=== PATIENT | male | born 1980 | race Hispanic/Latino ===

== ENCOUNTER 2020-03-02 21:33 | Inpatient (IN) | payer OTHER, SELFPAY ==
[~2020-03-02] VITALS: Ht 170.2 cm; Wt 82.1 kg
[2020-03-02 23:15] VITALS: BP 144/102
--- NOTE | 2020-03-02 23:35 | NUR ---
RADIOLOGY PATIENT TO XRAY VIA WHEELCHAIR WITH [employer] MOTOR VEHICLE EMISSIONS INSPECTOR
[2020-03-03] VITALS (46 sets, daily range): BP systolic 93–145; BP diastolic 41–89
--- NOTE | 2020-03-03 | NUR ---
LAB RESULTS RECEIVED CALL FROM LAB THAT PATIENT HAD A POSITIVE STREP RESULT. INFORMED DR. ROSS AT THAT TIME.
--- NOTE | 2020-03-03 00:17 | DIREP ---
PROCEDURE:CHEST 2 VIEWS COMPARISON:None. INDICATIONS:fever, cough FINDINGS: LUNGS/PLEURA:Vague opacity central right could represent a focus of pneumonia VASCULATURE:Normal. Unremarkable pulmonary vasculature. CARDIAC:Normal. No cardiac silhouette abnormality or cardiomegaly. MEDIASTINUM:Normal. No visible mass or adenopathy. BONES:Normal. No fracture or visible bony lesion. OTHER:Negative. CONCLUSION:Vague opacity central right lung, consider COVID-[address] could be used to confirm. No pneumothorax. No consolidation. Dictated by: Carmen Schmid MD on 03/03/2020 at 00:08 AM
[2020-03-03 00:49] LABS: BASOPHIL % 0.4 % (0.0-0.2); LYMPHOCYTES # 0.87 10^3/uL1 (1.0-4.8); MEAN CORP HGB 30.4 pg (26-34); MONOCYTES # 0.6 10^3/uL (0.3-0.8); NEUTROPHIL # 3.1 10^3/uL (1.8-7.7); NEUTROPHILS % 67.5 % (41.0-85.0); PLATELET COUNT 165 10^3/uL (150-400); RED CELL DISTRIBUTION WIDTH 12.4 % (11.5-14.5)
[2020-03-03 00:58] LABS: CALCIUM 8.8 mg/dL (8.4-10.5); CARBON DIOXIDE 8.4 mmol/L (20.0-32)
--- NOTE | 2020-03-03 00:59 | NUR ---
LAB RESULT PANKAJ GREEN RECEIVED CALL THAT PATIENT HAS A GLUCOSE 480. DR. ROSS INFORMED AT THIS TIME.
[2020-03-03] MEDS ORDERED: NS 1000ML 1,000 ML IV ONE (01:30)
[2020-03-03] MEDS ORDERED: NS 1000ML 1,000 ML ONE ×2 (01:32→04:26)
[2020-03-03] MEDS ORDERED: NS 250ML 250 ML IV ONE (01:32)
[2020-03-03] MEDS ORDERED: ZITHROMAX 500 MG in NS 250ML 250 ML IV STA (02:08)
--- NOTE | 2020-03-03 02:11 | NUR ---
DR. ROSS ON THE PHONE WITH DR. DOTY
[2020-03-03] MEDS ORDERED: DEXTROSE 50%-WATER SYRINGE IV PRN (02:30)
[2020-03-03] MEDS ORDERED: HUMULIN R 100 UNIT in NS 100ML 100 ML IV SCH ×2 (02:30→08:50)
[2020-03-03] MEDS ORDERED: HUMULIN R IV ONE (02:30)
--- NOTE | 2020-03-03 02:35 | ER.PDOC ---
General Chief Complaint: Dyspnea/Respdistress Stated Complaint: HEADACHE,FEVER,DRY COUGH Time seen by MD: 00:30 Source: patient Exam Limitations: no limitations History of Present Illness Initial Comments Pt reports that he had symptoms of a mild cough, felt feverish, and had body aches that started about 1 week ago. Got better 3 days ago after taking an u nknown Mexiccan antibiotic. The about 24 hours late began having a sore throat, dry cough, shortness of breath, and feeling very fatigued. Had fever at home, pt does not recall number as his took his temp, but he was "pouring sweat". Pt feels like his heart is pounding. Timing/Duration: gradual Associated Symptoms: fever/chills, sweating, cough Prior symptoms/Treatment: No Similar symptoms previous, No Recenly Seen Allergies: Coded Allergies: No Known Allergies (Unverified , 09/15/14) Home Meds No Active Prescriptions or Reported Meds Constitutional: see HPI, chills, fever, malaise EENTM: see HPI, throat pain Respiratory: cough, shortness of breath, SOB with exertion Cardiovascular: lightheadedness, palpitations Gastrointestinal: see HPI; denies abdominal pain, denies constipated, denies diarrhea; nausea Genitourinary: no symptoms reported Musculoskeletal: other (diffuse body aches) Skin: no symptoms reported Psychiatric/Neurological: no symptoms reported Endocrine: denies intolerance to cold, denies intolerance to heat, denies increased hunger Hematologic/Lymphatic: see HPI All Other Systems: Reviewed and Negative Past Medical History Medical History: no pertinent history Family History Significant Family History: no pertinent family hx Social History Alcohol Use: rarely Drug Use: none Physical Exam General Appearance: alert Eye: PERRL, no nystagmus Nose: nose nml Throat: pharyngeal erythema (no mass or exudate) Neck: nml inspection, supple Respiratory: no resp.distress Abdomen: non-tender CVS: tachycardia Skin: color nml, no rash, warm/dry Extremities: non-tender, nml ROM NEURO/PSYCH: oriented x 3, motor nml, sensation nml Results/Orders Results/Orders Orders - YUNIEL ROSS DO Strep Screen (03/02/20 23:14) Influenza A&B (03/02/20 23:14) Xr Chest 2v (03/02/20 23:14) Cbc With Auto Diff (03/03/20 00:38) Comprehensive Metabolic Panel (03/03/20 00:38) Blood Culture (03/03/20 00:38) Arterial Blood Gas (03/03/20 01:08) Acetone,Serum (Ml) (03/03/20 01:08) 0.9 % Sodium Chloride (Ns 1000ml) (03/03/20 01:30) 0.9 % Sodium Chloride (Ns 1000ml) (03/03/20 01:32) 0.9 % Sodium Chloride (Ns 250ml) (03/03/20 01:32) Azithromycin (Zithromax) (03/03/20 02:08) Phosphorus (03/03/20 02:17) Magnesium (03/03/20 02:17) Dextrose 50 % In Water (Dextrose 50%-Juan Pablo (03/03/20 02:30) Insulin Regular, Human (Humulin R) (03/03/20 02:30) Insulin Regular, Human (Humulin R) (03/03/20 02:30) 0.9 % Sodium Chloride (Ns 100ml) (03/03/20 02:44) Insulin Regular, Human (Humulin R) (03/03/20 02:44) Vital Signs Date Time Temp Pulse Resp B/P (MAP) Pulse Ox O2 Delivery O2 Flow Rate FiO2 03/03/20 02:12 99.1 139 18 142/84 (103) 99 Room Air 03/02/20 23:15 99.1 124 18 03/02/20 23:15 99.1 124 18 99 Administered Medications Medications (Trade) Dose Ordered Sig/Aubrie Route PRN Reason Start Time Stop Time Status Last Admin Dose Admin Azithromycin 500 mg/Sodium Chloride 250 ml @ 175 mls/hr STAT STAT IV 03/03/20 02:08 03/03/20 03:33 03/03/20 02:11 175 MLS/HR Sodium Chloride 1,000 ml @ 0 mls/hr Q0M ONCE IV 03/03/20 01:30 03/03/20 01:31 DC 03/03/20 01:57 1,200 MLS/HR Laboratory Tests Test 03/02/20 23:30 03/03/20 00:01 Influenza Type A Antigen NEGATIVE (NEG) Influenza B Immunofluorescence NEGATIVE (NEG) Group A Streptococcus Screen POSITIVE (NEGATIVE) White Blood Count 4.6 10^3/uL (4.5-11.0) Red Blood Count 5.62 10^6/uL (4.50-5.90) Hemoglobin 17.1 g/dL (13.9-16.3) H Hematocrit 48.1 % (37.0-53.0) Mean Corpuscular Volume 85.6 fL (78-100) Mean Corpuscular Hemoglobin 30.4 pg (26-34) Mean Corpuscular Hemoglobin Concent 35.6 g/dL (33-36.5) Red Cell Distribution Width 12.4 % (11.5-14.5) Platelet Count 165 10^3/uL (150-400) Mean Platelet Volume 11.3 fL (7.8-11.0) H Neutrophils (%) (Auto) 67.5 % (41.0-85.0) Lymphocytes (%) (Auto) 19.0 % (24.0-44.0) L Monocytes (%) (Auto) 12.0 % (5.0-12.0) Neutrophils # (Auto) 3.1 10^3/uL (1.8-7.7) Lymphocytes # (Auto) 0.87 10^3/uL1 (1.0-4.8) L Monocytes # (Auto) 0.6 10^3/uL (0.3-0.8) Absolute Immature Granulocyte (auto 0.05 10^3 u/L (0-2) Absolute Eosinophils (auto) 0.0 10^3/uL (0.0-0.2) Immature Granulocytes % 1.10 % (0.00-0.50) H Eosinophils % 0.0 % (0.0-5.0) Basophils % 0.4 % (0.0-0.2) H Basophils # 0.0 10^3/uL (0.0-0.1) Sodium Level 126 mmol/L (132-145) #L Potassium Level 3.7 mmol/L (3.6-5.2) Chloride Level 91.0 mmol/L (96-109) L Carbon Dioxide Level 8.4 mmol/L (20.0-32) *L Anion Gap 30.3 Blood Urea Nitrogen 11 mg/dL (7-18) Creatinine 1.20 mg/dL (0.59-1.40) Estimated GFR () 80.7 (>/=60) Est GFR (CKD-EPI)(Non-Afr Samoan) 66.7 (>/=60) BUN/Creatinine Ratio 9.0 Glucose Level 480 mg/dL (70-110) *H Calcium Level 8.8 mg/dL (8.4-10.5) Phosphorus Level 2.8 mg/dL (2.5-4.9) Magnesium Level 1.7 mg/dL (1.8-2.4) L Total Bilirubin 0.5 mg/dL (0.2-1.0) Aspartate Amino Transferase (AST) 20 U/L (0-35) Alanine Aminotransferase (ALT) 30 U/L (12-78) Alkaline Phosphatase 129 U/L (50-136) Total Protein 8.5 g/dL (6.4-8.2) H Albumin 3.7 g/dL (3.4-5.0) Globulin 4.8 Acetone, Semi-Quantitative SMALL Progress Progress Pt started on IVF, insulin drip for DKA. Pt tested positive for strep, but has CXR with signs of possible viral pneumonitis. I spoke with Dr. Urena, will admit to ICU. Spoke with [facility], [facility] # assigned [id number] Departure Time of Disposition: 02:58 Disposition: 09 ADMITTED INPATIENT Impression: Primary Impression: Diabetic ketoacidosis Additional Impressions: New onset type 2 diabetes mellitus Strep pharyngitis Pneumonia involving right lung Condition: Stable Referrals: ELSA MCCONNELL RETAIL EXPERIENCE SPECIALIST (PCP) PRIMARY CARE PROVIDER Scripts No Active Prescriptions or Reported Meds Duration or Time Spent with Pa: 45 Problem Qualifiers Primary Impression: Diabetic ketoacidosis Diabetes mellitus type: type 2 Diabetes mellitus complication detail: without coma Qualified Codes: E11.10 - Type 2 diabetes mellitus with ketoa cidosis without coma Additional Impressions: Pneumonia involving right lung Pneumonia type: due to unspecified organism Lung location: unspecified part of lung Qualified Codes: J18.9 - Pneumonia, unspecified organism YUNIEL ROSS DO Mar 03, 2020 02:35
[2020-03-03] MEDS ORDERED: HUMULIN R ONE (02:44)
[2020-03-03] MEDS ORDERED: NS 100ML 100 ML IV ONE (02:44)
--- NOTE | 2020-03-03 02:57 | NUR ---
BILLIE# [id number]
[2020-03-03] MEDS: D5W-1/2 NS/KCL 20MEQ 1,000 ML IV SCH ×3 (06:29→13:10)
[2020-03-03] MEDS: NS 1000ML/KCL 20MEQ 1,000 ML IV SCH ×3 (06:29→15:27)
[2020-03-03 06:46] LABS: CALCIUM 8.2 mg/dL (8.4-10.5); CARBON DIOXIDE 14.5 mmol/L (20.0-32)
[2020-03-03 06:51] LABS: ABG PCO2 13.2 mmHg (35.0-45.0); BE(B) -16.8 mmol/L (-2.0-2.0); HCO3act 6.2 mmol/L (22.0-26.0); pO2 94.5 mmHg (80.0-100.0)
--- NOTE | 2020-03-03 07:00 | NUR ---
Report given to oncoming shift. Basic lab pending, NS + 20 KCL started @ 150 cc/hour via RAC along with Humulin R @ 6 units /hour. IV site remains patent.
[2020-03-03] MEDS ORDERED: D5NS 1000ML/KCL 20MEQ 1,000 ML ONE (07:49)
--- NOTE | 2020-03-03 10:00 | NUR ---
DISCHARGE PLAN CASE MANAGEMENT VISITED WITH PATIENT CONCERNING DISCHARGE PLAN AND NEEDS. LIVES AT HOME WITH 11 YEAR OLD CHILD. HIS PARENTS ALSO LIVE IN [place] AND ARE AVAILABLE TO ASSIST WHEN NEEDED. INDEPENDENT OF ADLS. 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 HE DOES NOT HAVE ANY DME. CM PROVIDED PATIENT WITH A GLUCOMETER. DENIED NEED FOR OUTPATIENT SERVICES. HE HAS FINANCIAL ABILITY TO PAY FOR MEDICATIONS UPON DISCHARGE IF NEEDED. PATIENT STATED, "I SEE THE DOCTOR IN [place] IF I NEED ANY MEDICATIONS OR DOCTOR'S APPOINTMENTS." CM EDUCATED PATIENT ON IMPORTANCE OF HAVING A LOCAL PCP WITH THE NEW ONSET DM ESPECIALLY. CM PROVIDED A PCP LIST FOR LOCAL PHYSICIANS AND ENCOURAGED PATIENT TO FOLLOW UP WITH A PCP THAT COULD FOLLOW HIS LAB WORK AND POSSIBLE MEDICATION ADJUSTMENTS CLOSELY. PATIENT VOICED UNDERSTANDING AND WAS RECEPTIVE TO THE PCP LIST. PATIENT STATES, "I DO KNOW HOW TO CHECK BLOOD SUGARS. BOTH MY PARENTS ARE DIABETICS AND I HAVE LEARNED WITH THEM. I HAVE NEVER GIVEN INJECTIONS TO MYSELF OR TO MY PARENTS." CM NOTIFIED MINO DOVE RN ABOUT ABOVE AND NEED FOR EDUCATION FOR SELF INJECTIONS IF DISCHARGED HOME WITH INSULIN." DISCHARGE PLAN IS TO DISCHARGE HOME WITH CHILD AND CONTINUE SELF CARE. CM WILL CONTINUE TO FOLLOW FOR DISCHARGE NEEDS.
--- NOTE | 2020-03-03 10:24 | PCM.HP ---
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 He took some kind of antibiotic that he got from [place] and still did not feel better and was complaining of his extreme sore throat as well. He states that he has been thirsty a lot and drinking lots of fluids and feeling weaker. He denies any trauma, no sick contacts, no diarrhea, no chest pain. Due to his worsening cough and congestion and weakness he presented to the ER where he was found to be in DKA and had an upper respiratory infection and admitted to ICU thereafter. PAST MEDICAL HISTORY: He denies any PAST SURGICAL HISTORY: Thumb repair ALLERGIES: No known drug allergies MEDICATIONS: None SOCIAL HISTORY: Occasional alcohol, no drug use FAMILY HISTORY: There is diabetes in the family PHYSICAL EXAMINATION: VITAL SIGNS: Temperature 99.1, pulse 124, respirations 18, blood pressure 142/84, O2 sats 99% on room air HEENT: Oropharynx is dry, oropharynx is red NECK: Supple, no JVD HEART: S1 and S2 audible, he was slightly tachycardic LUNGS: CTA bilaterally ABDOMEN: Bowel sounds present, soft abdomen EXTREMITIES: No cyanosis, no pitting edema, 2+ distal pulses are noted LABORATORY DATA: WBC 4.6, hemoglobin 17.1, platelet count 165, chemistry panel sodium 126, potassium 3.7, chloride 91, bicarb 8.4, BUN 11, anion gap 30, creatinine 1.2, glucose 480, magnesium 1.7, LFTs normal, strep test positive, flu AMB negative Chest x-ray: He has a opacity in the central right lung suspicious for pneumonia ASSESSMENT: We had this gentleman with DKA, new onset, and strep throat with early pneumonia. He does not appear to be septic at this time. Due to his URI symptoms and coming from [place] he is being tested for coronavirus 19 and in isolation currently. PLAN: Insulin drip is started and will continue fluids and the drip and try to correct his DKA state. He will be put on IV antibiotics as well for his strep and pneumonia. And he is in isolation for coronavirus 19 testing. SLADE DOTY MD Mar 03, 2020 10:24
[2020-03-03] MEDS ORDERED: TYLENOL ONE (11:43)
[2020-03-03] MEDS: TYLENOL PO PRN (11:56)
--- NOTE | 2020-03-03 11:56 | NUR ---
Temperature Dr. Urena notified of patient's temperature of 100.6. New order received for Tylenol 650mg q6hr PRN. RBTO.
[2020-03-03 12:02] LABS: CALCIUM 8.4 mg/dL (8.4-10.5); CARBON DIOXIDE 18.8 mmol/L (20.0-32)
[2020-03-03 15:39] LABS: CALCIUM 8.5 mg/dL (8.4-10.5); CARBON DIOXIDE 18.3 mmol/L (20.0-32)
--- NOTE | 2020-03-03 15:59 | NUR ---
Dr. Ayanna Urena notified of BMP results. New orders received to give lantus 25mg sq x1 at 1600, to give 1800 ADA diet at 1700 and to stop IV fluids and insulin gtt at that time and to change blood glucose to ACHS. RBTO.
[2020-03-03] MEDS ORDERED: LANTUS SQ ONE (16:00)
[2020-03-03] MEDS: KLOR-CON 10 PO SCH (21:00)
[2020-03-03] MEDS: HUMALOG SQ SCH (21:00)
[2020-03-03] MEDS: ZITHROMAX PO SCH (21:00)
[2020-03-04] VITALS (66 sets, daily range): BP systolic 94–146; BP diastolic 35–85
[2020-03-04] MEDS ORDERED: ZITHROMAX PO SCH
[2020-03-04] MEDS: NS 1000ML/KCL 20MEQ 1,000 ML IV SCH ×2 (02:30→09:10)
[2020-03-04] MEDS: D5W-1/2 NS/KCL 20MEQ 1,000 ML IV SCH ×2 (02:30→09:10)
[2020-03-04 05:08] LABS: BASOPHIL % 0.4 % (0.0-0.2); LYMPHOCYTES # 1.77 10^3/uL1 (1.0-4.8); MEAN CORP HGB 31.3 pg (26-34); MONOCYTES # 0.4 10^3/uL (0.3-0.8); MONOCYTES % 6.5 % (5.0-12.0); NEUTROPHIL # 3.2 10^3/uL (1.8-7.7); NEUTROPHILS % 59.7 % (41.0-85.0); PLATELET COUNT 139 10^3/uL (150-400); RED CELL DISTRIBUTION WIDTH 12.5 % (11.5-14.5)
[2020-03-04 05:15] LABS: CALCIUM 8.4 mg/dL (8.4-10.5); CARBON DIOXIDE 16.9 mmol/L (20.0-32)
[2020-03-04] MEDS: HUMALOG SQ SCH ×5 (07:30→23:00)
[2020-03-04] MEDS: KLOR-CON 10 PO SCH ×3 (08:16→19:54)
[2020-03-04] MEDS: ROCEPHIN 2,000 MG in NS 100ML 100 ML IV SCH (08:16)
[2020-03-04] MEDS: TYLENOL PO PRN ×2 (08:20→18:37)
--- NOTE | 2020-03-04 13:30 | NUR ---
DR. SANTILLAN AT BEDSIDE ASSESSING PATIENT AND DISCUSSING POC. NO NEW ORDERS AT THIS TIME.
--- NOTE | 2020-03-04 15:41 | NUR ---
DISCHARGE UPDATE DURING DC MEETING THIS AM IT WAS DISCUSSED WITH DR. SANTILLAN ABOUT NEED FOR DC MEDS FOR DIABETES SO ARRANGEMENTS COULD BE MADE TO ASSIST WITH COUPONS OR SAMPLES IF AVAILABLE. DR. SANTILLAN STATED, "SINCE HE IS A ATTENDING AMBULATORY CARE HE CAN NOT BE DISCHARGED ON ANY INJECTABLES. HE WILL NEED A FEW PO MEDICATIONS." HONORIO HAS NOT BEEN NOTIFIED OF THE PLAN FOR DC MEDS AT THIS TIME, THEREFORE, A [employer] $4 LIST AND INSTRUCTIONS FOR GOOD RX COUPONS WAS LEFT ON PATIENT CHART. HONORIO NOTIFIED ROLANDO FELDMAN RN OF THE PROCESS TO ASSIST PATIENT IF NEEDED. Addendum: 03/04/20 at 1631 by Kristie Voss RN-HONORIO & COMPRESSOR STATION ENGINEER ROLANDO FELDMAN RN PHONED DR. SANTILLAN FOR NEW ORDERS AFTER A1C DRAWN. HONORIO PRINTED GOOD RX COUPONS FOR THOSE MEDICATIONS INCLUDING HUMALOG INSULIN, LANTUS INSULIN, AND METFORMIN IS A MEDICATION ON THE [employer] $4 LIST. ALSO LEFT NOTE FOR SCRIPT FOR SYRINGES, LANCETS, AND STRIPS. THE INSTRUCTIONS TO PRINT NEW GOOD RX COUPONS IS ALSO STILL ON CHART ALONG WITH THE [employer] $4 LIST.
--- NOTE | 2020-03-04 16:12 | NUR ---
A1C >16, RESULTS CALLED TO DR. SANTILLAN. NEW TELEPHONE ORDERS RECEIVED: START LANTUS 40UNITS AT BEDTIME, 12 UNITS OF HUMALOG BEFORE MEALS AND CONTINUE SLIDING SCALE, METFORMIN 1000MG BID. RBAV.
--- NOTE | 2020-03-04 17:40 | PRM.PN ---
PROGRESS NOTE S/O/A/P DATE: March 04, 2020 SUBJECTIVE: I seen the patient examined myself. 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 He started having some cough and fever and severe body aches. Patient was started on some kind of antibiotics that he got from [place]. He did not feel much better. He had also sore throat. He has been thirsty a lot. He had a fever. He presented to the emergency department because of the thought and he was found to be in DKA. OBJECTIVE: Awake alert oriented Lungs clear to auscultation he has some baseline crepitations bilaterally Heart regular at rate S1-S2 Abdomen soft nontender plus bowel sounds Extremities no edema cyanosis or clubbing Head normocephalic atraumatic LABORATORY DATA: White count is 5.4 hemoglobin 15.7 hematocrit 42 platelets 139 hemoglobin A1c 16 sodium 135 potassium 3.3 chloride 99 carbon dioxide is 16.9 ASSESSMENT /plan [] DKA the patient has a history of diabetes mellitus type 2 but he was overweight and the patient says that he lost a lot of weight so he was not taking anything for his diabetes. Today his hemoglobin A1c is above 16. Will start the patient on long-acting and short acting insulin. Consult diabetic education Diabetic diet Following the anion gap to make sure that it is closed Pneumonia due to COVID-19, the patient is positive for coronavirus -Currently the patient is on the Rocephin and Zithromax. -The patient is in isolation room. -We will track his contacts and they need to be tested as well. -We will watch the patient overnight if he deteriorates we will transfer the patient to [place]. We will contact the state and probably the need to track his contact and actually check them for COVID-19 as well. COLTON SANTILLAN MD Mar 04, 2020 17:40
[2020-03-04] MEDS ORDERED: NS 100ML 100 ML IV ONE (17:42)
[2020-03-04] MEDS ORDERED: NS 1000ML 1,000 ML ONE (17:42)
[2020-03-04] MEDS ORDERED: GLUCOPHAGE ONE (17:43)
[2020-03-04] MEDS ORDERED: HUMULIN R ONE (17:43)
[2020-03-04] MEDS: NS 1000ML 1,000 ML IV SCH (18:00)
[2020-03-04] MEDS ORDERED: HUMULIN R 100 UNIT in NS 100ML 100 ML IV SCH (18:00)
--- NOTE | 2020-03-04 19:06 | PCM.EKG ---
[facility] Test Date: 2020-03-04 Test Time: 18:06:32 Pat Name: SID VELEZ Department: Room: ICU8 A Gender: M Shoe Stamper: RODRIGUEZ : 1980 Requested By: COLTON SANTILLAN Order Number: [id number] Reading MD: Measurements Intervals Munger Rate: 104 P: 34 PA: 142 QRS: 27 QRSD: 91 T: 55 QT: 344 QTc: 453 Interpretive Statements Sinus tachycardia No previous ECG available for comparison Please click the below link to view image of tracing.
[2020-03-04] MEDS: GLUCOPHAGE PO SCH (19:35)
[2020-03-04] MEDS: ZITHROMAX PO SCH (19:53)
[2020-03-04] MEDS: LANTUS SQ SCH (23:00)
[2020-03-05] VITALS (50 sets, daily range): BP systolic 86–138; BP diastolic 38–95
[2020-03-05] MEDS: TYLENOL PO PRN ×2 (02:51→22:40)
[2020-03-05] MEDS: NS 1000ML 1,000 ML IV SCH ×2 (04:00→16:36)
[2020-03-05 06:57] LABS: BASOPHIL % 0.7 % (0.0-0.2); EOSINOPHIL % 0.2 % (0.0-5.0); LYMPHOCYTES # 1.76 10^3/uL1 (1.0-4.8); LYMPHOCYTES % 31.8 % (24.0-44.0); MEAN CORP HGB 30.6 pg (26-34); MONOCYTES # 0.4 10^3/uL (0.3-0.8); MONOCYTES % 7.9 % (5.0-12.0); NEUTROPHIL # 3.3 10^3/uL (1.8-7.7); PLATELET COUNT 131 10^3/uL (150-400)
[2020-03-05 07:25] LABS: CALCIUM 8.1 mg/dL (8.4-10.5); CARBON DIOXIDE 22.6 mmol/L (20.0-32)
--- NOTE | 2020-03-05 07:32 | NUR ---
STATUS PT LYING IN BED RESPS EVEN AND NON LABORED, NO S/S OF DISTRESS NOTED. LINENS CHANGED. IV D/C'D TO RIGHT FOREARM DUE TO PT PULLING OUT. WILL CONT TO MONITOR, CALL LIGHT WITHIN REACH. BED LOCKED AND LOW POSITION.
[2020-03-05] MEDS ORDERED: MAGNESIUM SULFATE 50 ML IV ONE (08:00)
--- NOTE | 2020-03-05 08:35 | NUR ---
STATUS BLOOD GLUCOSE TAKEN, PT SITTING UP IN BED EATING BREAKFAST, 20 G IV TO LEFT FOREARM STARTED, NO S/S OF DISTRESS NOTED. PITCHER OF WATER TAKEN TO PT. WILL CONT TO MONITOR, CALL LIGHT WITHIN REACH. BED LOCKED AND LOW POSITION.
[2020-03-05] MEDS: GLUCOPHAGE PO SCH ×2 (09:00→20:44)
[2020-03-05] MEDS ORDERED: KLOR-CON 10 PO ONE (09:00)
[2020-03-05] MEDS: VITAMIN C PO SCH (09:00)
[2020-03-05] MEDS: LOVENOX SQ SCH (09:00)
[2020-03-05] MEDS: HUMALOG SQ SCH ×6 (09:04→20:47)
[2020-03-05] MEDS: KLOR-CON 10 PO SCH ×3 (09:31→20:20)
--- NOTE | 2020-03-05 09:35 | NUR ---
STATUS DR KEITH STATES, "HIS ANION GAP HAS CLOSED SO WE CAN START TITRATING THE INSULIN DRIP DOWN, DECREASE TO 1MLS/HR AND START DOING ACCU CHECKS Q2 HRS." PT NO OTHER ORDERS RECEIVED
--- NOTE | 2020-03-05 11:02 | NUR ---
STATUS PT UP AMBULATING TO THE BATHROOM, NO S/S OF DISTRESS NOTED. DENIES NEEDS AT THIS TIME, WILL CONT TO MONITOR, CALL LIGHT WITHIN REACH.
[2020-03-05] MEDS: ROCEPHIN 2,000 MG in NS 100ML 100 ML IV SCH (11:07)
--- NOTE | 2020-03-05 11:11 | NUR ---
STATUS PT LYING IN BED WITH EYES OPEN, RESPS EVEN AND NON LABORED. PT EDUCATED ON WEARING SURGICAL MASK WHEN STAFF IS PRESENT IN ROOM. VERBALIZED UNDERSTANDING. NO S/S OF DISTRESS NOTED. DENIES FURTHER NEEDS AT THIS TIME. WILL CONT TO MONITOR, CALL LIGHT WITHIN REACH. BED LOCKED AND LOW POSITION.
--- NOTE | 2020-03-05 11:24 | PRM.PN ---
PROGRESS NOTE S/O/A/P DATE OF Service: 03/05/2020 UBJECTIVE: I seen the patient examined myself. He feels much better today. I have discussed with him the current situation. 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 He seems to understand. Consent diabetic education to talk to him again as well. OBJECTIVE: Awake alert oriented. Lungs clear to auscultation he has some baseline crepitations bilaterally Heart regular at rate S1-S2 Abdomen soft nontender plus bowel sounds Extremities no edema cyanosis or clubbing Head normocephalic atraumatic LABORATORY DATA:I have reviewed all labs, Mag 1.6 low. Glucose in the 200s . ASSESSMENT /plan [] DKA the patient has a history of diabetes mellitus type 2 but he was overweight and the patient says that he lost a lot of weight so he was not taking anything for his diabetes. Today his hemoglobin A1c is above 16. Will start the patient on long-acting and short acting insulin. Consult diabetic education Diabetic diet Following the anion gap to make sure that it is closed Hypomagnesemia Pneumonia due to COVID-19, the patient is positive for coronavirus. Continue with supportive care. I will hold off starting hydroxychloroquine at this point due to the new [facility] that showed none benefit of hydroxychloroquine and the outcome and severity of disease. -Continue Rocephin and Zithromax. -The patient is in isolation room. -We will track his contacts and they need to be tested as well. -We will watch the patient overnight if he deteriorates we will transfer the patient to [place]. We will contact the state and probably the need to track his contact and actually check them for COVID-19 as well. Replace COLTON Adkins MD Mar 05, 2020 11:24
--- NOTE | 2020-03-05 13:20 | NUR ---
STATUS PT EDUCATED ON SELF ADMINISTRATION OF INSULIN INJECTION, TAUGHT ON SITES FOR INJECTIONS AND ADMINISTRATION. RETURN DEMONSTRATION. PT DENIES FURTHER NEEDS ON TEACHING. PT SITTING UP IN BED EATING LUNCH, RESPS EVEN AND NON LABORED. WILL CONT TO MONITOR, CALL LIGHT WITHIN REACH.
--- NOTE | 2020-03-05 14:53 | NUR ---
STATUS PT LYING IN BED RESPS EVEN AND NON LABORED. DENIES NEEDS AT THIS TIME, WILL CONT TO MONITOR, CALL LIGHT WITHIN REACH. BED LOCKED AND LOW POSITION.
--- NOTE | 2020-03-05 15:29 | NUR ---
STATUS PT UP AMBULATING TO BATHROOM INDEPENDENTLY, NO S/S OF DISTRESS NOTED. DENIES NEEDS AT THIS TIME, WILL CONT TO MONITOR, CALL LIGHT WITHIN REACH.
--- NOTE | 2020-03-05 16:25 | NUR ---
DRIP INSULIN DRIP TAKEN OFF OF PT AT THIS TIME. WILL CONT TO MONITOR, CALL LIGHT WITHIN REACH.
--- NOTE | 2020-03-05 16:57 | NUR ---
STATUS PT LYING IN BED, RESPS EVEN AND NON LABORED, NO S/S OF DISTRESS NOTED. EDUCATION GIVEN ON SELF ADMINISTRATION OF INSULIN INJECTION. RETURN DEMONSTRATION AND VERBALIZED UNDERSTANDING. PT EDUCATED ON USE OF INCENTIVE SPIROMETER AND PURPOSE. PITCHER OF WATER GIVEN TO PT WELL. WILL CONT TO MONITOR, CALL LIGHT WITHIN REACH.
[2020-03-05] MEDS: ZITHROMAX PO SCH (20:20)
[2020-03-05] MEDS: LANTUS SQ SCH (20:46)
--- NOTE | 2020-03-05 20:55 | NUR ---
Patient resting in bed with eyes open. Resp even and non labored. NO s/s of distress noted at this time. Bed low and locked. Will continue to monitor. Call light within reach.
--- NOTE | 2020-03-05 23:03 | NUR ---
Patient resting in bed. with eyes open. Resp even and non labored. Resp even and non labored. No s/s of distress noted at this time. Bed low and locked. Call light with in reach. Will continue to monitor.
[2020-03-06] VITALS (59 sets, daily range): BP systolic 83–133; BP diastolic 37–86
--- NOTE | 2020-03-06 00:44 | NUR ---
Patient resting in bed with eyes closed. Resp even and non labored. No s/s of distress noted at this time. Will continue to monitor. Call light within reach.
[2020-03-06] MEDS: NS 1000ML 1,000 ML IV SCH ×3 (01:13→20:38)
--- NOTE | 2020-03-06 03:49 | NUR ---
Patient continues resting in bed with eyes closed. Resp even and non labored. No s/s of distress noted at this time. Will continue to monitor.
[2020-03-06 05:32] LABS: CALCIUM 8.5 mg/dL (8.4-10.5); CARBON DIOXIDE 28.6 mmol/L (20.0-32)
[2020-03-06 05:33] LABS: BASOPHIL % 0.7 % (0.0-0.2); EOSINOPHIL % 0.9 % (0.0-5.0); LYMPHOCYTES % 43.2 % (24.0-44.0); MONOCYTES # 0.5 10^3/uL (0.3-0.8); MONOCYTES % 10.9 % (5.0-12.0); NEUTROPHIL # 1.9 10^3/uL (1.8-7.7); NEUTROPHILS % 43.4 % (41.0-85.0); PLATELET COUNT 148 10^3/uL (150-400); RED CELL DISTRIBUTION WIDTH 12.3 % (11.5-14.5)
--- NOTE | 2020-03-06 06:13 | NUR ---
Patient sitting uip in bed. Fresh ice water offered. Denies other needs at this time.
[2020-03-06] MEDS: HUMALOG SQ SCH ×7 (07:30→21:07)
[2020-03-06] MEDS: VITAMIN C PO SCH (09:00)
[2020-03-06] MEDS: LOVENOX SQ SCH (09:00)
[2020-03-06] MEDS: ROCEPHIN 2,000 MG in NS 100ML 100 ML IV SCH (09:00)
[2020-03-06] MEDS: KLOR-CON 10 PO SCH ×3 (09:00→20:39)
[2020-03-06] MEDS: GLUCOPHAGE PO SCH ×2 (09:00→20:39)
--- NOTE | 2020-03-06 10:34 | PRM.PN ---
PROGRESS NOTE S/O/A/P ATE OF Service: 03/06/2020 UBJECTIVE: I seen the patient examined myself. He feels much better today. OBJECTIVE: Awake alert oriented. Lungs clear to auscultation he has some baseline crepitations bilaterally Heart regular at rate S1-S2 Abdomen soft nontender plus bowel sounds Extremities no edema cyanosis or clubbing Head normocephalic atraumatic LABORATORY DATA:I have reviewed all labs, Mag 1.6 low. Glucose in the 200s . ASSESSMENT /plan [] DKA the patient has a history of diabetes mellitus type 2 but he was overweight and the patient says that he lost a lot of weight so he was not taking anything for his diabetes. - off the insulin gtt, the anion gap has closed - cont insuln sq regiment - Diabetic diet Today his hemoglobin A1c is above 16. Will start the patient on long-acting and short acting insulin. Consult diabetic education Diabetic diet Following the anion gap to make sure that it is closed Hypomagnesemia Pneumonia due to COVID-19, the patient is positive for coronavirus. - Continue Rocephine / Zithromax - add Mucinex for thick mucus - continue VitC 1000 mg daily - No fever, SOB has improved - Home soon. * DVT prophylaxis * COLTON SANTILLAN MD Mar 06, 2020 10:34
--- NOTE | 2020-03-06 19:00 | NUR ---
Received report . assumed care of pt. Pt up ambulating in room. No discomforts noted. Call light avail. Pt able to use.
--- NOTE | 2020-03-06 20:05 | NUR ---
Pt lying in bed. No complaints voiced
[2020-03-06] MEDS: ZITHROMAX PO SCH (20:39)
[2020-03-06] MEDS: MUCINEX PO SCH (20:39)
[2020-03-06] MEDS: LANTUS SQ SCH (21:06)
[2020-03-07] VITALS (59 sets, daily range): BP systolic 75–136; BP diastolic 36–100
--- NOTE | 2020-03-07 00:10 | NUR ---
Pt up to void. Temp 99.2. No complaints voiced
--- NOTE | 2020-03-07 01:50 | NUR ---
Pt resting Rt side with eyes closed. No s/s of distress or discomfort noted.
[2020-03-07] MEDS: NS 1000ML 1,000 ML IV SCH ×3 (05:53→22:57)
[2020-03-07 06:11] LABS: BASOPHIL % 0.2 % (0.0-0.2); EOSINOPHIL # 0.1 10^3/uL (0.0-0.2); LYMPHOCYTES # 2.02 10^3/uL1 (1.0-4.8); LYMPHOCYTES % 32.8 % (24.0-44.0); MONOCYTES # 0.7 10^3/uL (0.3-0.8); MONOCYTES % 11.5 % (5.0-12.0); NEUTROPHIL # 3.3 10^3/uL (1.8-7.7); NEUTROPHILS % 53.9 % (41.0-85.0); PLATELET COUNT 186 10^3/uL (150-400); RED CELL DISTRIBUTION WIDTH 12.2 % (11.5-14.5)
[2020-03-07 06:29] LABS: CALCIUM 8.3 mg/dL (8.4-10.5); CARBON DIOXIDE 26.1 mmol/L (20.0-32)
--- NOTE | 2020-03-07 06:31 | NUR ---
Pt resting with eyes closed. Resps nonlaboured. No s/s of distress or discomfort noted.
[2020-03-07] MEDS: HUMALOG SQ SCH ×5 (07:30→20:58)
[2020-03-07] MEDS: KLOR-CON 10 PO SCH ×3 (07:37→20:19)
[2020-03-07] MEDS: MUCINEX PO SCH ×2 (07:37→20:19)
[2020-03-07] MEDS: GLUCOPHAGE PO SCH ×2 (07:38→20:20)
[2020-03-07] MEDS: VITAMIN C PO SCH (07:38)
[2020-03-07] MEDS: LOVENOX SQ SCH (07:39)
[2020-03-07] MEDS: ROCEPHIN 2,000 MG in NS 100ML 100 ML IV SCH (08:30)
--- NOTE | 2020-03-07 11:39 | PRM.PN ---
PROGRESS NOTE S/O/A/P ATE OF Service: 03/07/2020 UBJECTIVE: I seen the patient examined myself. He feels much better today. OBJECTIVE: Awake alert oriented. Lungs clear to auscultation he has some baseline crepitations bilaterally Heart regular at rate S1-S2 Abdomen soft nontender plus bowel sounds Extremities no edema cyanosis or clubbing Head normocephalic atraumatic LABORATORY DATA:I have reviewed all labs, Mag 1.6 low. Glucose in the 200s . ASSESSMENT /plan [] - hypokalemia, replace DKA , resolved the patient has a history of diabetes mellitus type 2 but he was overweight and the patient says that he lost a lot of weight so he was not taking anything for his diabetes. - off the insulin gtt, the anion gap has closed - cont insuln sq regiment - Diabetic diet Today his hemoglobin A1c is above 16. Will start the patient on long-acting and short acting insulin. Consult diabetic education Diabetic diet Following the anion gap to make sure that it is closed Hypomagnesemia Pneumonia due to COVID-19, the patient is positive for coronavirus. - Continue Rocephine / Zithromax - add Mucinex for thick mucus - continue VitC 1000 mg daily - No fever, SOB has improved - Home in the next 24-48 h COLTON SANTILLAN MD Mar 07, 2020 11:39
--- NOTE | 2020-03-07 14:30 | NUR ---
DISCHARGE UPDATE CASE MANAGEMENT SPOKE WITH PATIENT VIA INTERCOM IN THE ICU UNIT DUE TO COVID POSITIVE TEST CONCERNING INSULIN AND DIABETIC SUPPLIES COST ALONG WITH COUPONS. PATIENT STATED, "I'M PRETTY SURE I CAN AFFORD THE MEDICATIONS." THE PATIENT IS A [employer] AND HIS A1C IS 16.8, THEREFORE, DR. SANTILLAN STATED AT THIS TIME HE WILL NEED TO BE DISCHARGE ON INSULIN. 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 CM LEFT A RESOURCE LIST WITH [facility] IN [facility] FOR ASSIST WITH PCP AND MEDICATIONS IF INCOME STATUS CHANGED. CM VOICED IMPORTANCE OF TAKING ALL MEDICATIONS PRESCRIBED AND KEEPING BLOOD SUGARS WITHIN NORMAL LIMITS. PATIENT VOICED UNDERSTANDING. PATIENT ALSO STATED, "I DO GET MY MEDICATIONS FROM [place], BUT THAT IS ONLY WHEN I CAN TRAVEL TO THEIR TO GET THEM." CM ALSO PHONED DUANE MICHAEL WITH [facility] TO DISCUSS OPTIONS WITH INSULIN DEPENDENCE ADDED. 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 HE IS ESTIMATED $5000 OF THE INCOME WITH HIS CURRENT EMPLOYMENT. CM WILL CONTINUE TO FOLLOW FOR DISCHARGE NEEDS. MEDICATION COUPONS, RESOURCE LIST, CM CONTACT INFORMATION, AND [employer] $4 LIST ALL ATTACHED TO FRONT OF PATIENT CHART FOR DISCHARGE. PATIENT ALSO NEEDS A SCRIPT FOR SYRINGES, NEEDLES, AND LANCETS. Addendum: 03/07/20 at 1540 by Kristie Voss RN-[employer] TRA[employer] OPERATOR PATIENT ALSO VOICED, "I HAVE BEEN WORKING WITH THE NURSES GIVING MYSELF INJECTIONS AND DRAWING UP THE INSULIN. I FEEL COMFORTABLE WITH THAT NOW." MELODY ATKINSON RN STATED DIETARY HAS ALSO CONSULTED FOR DIABETIC EDUCATION.
--- NOTE | 2020-03-07 17:13 | NUR ---
STATUS PT AMBULATED TO BATHROOM FOR ORAL CARE, AND SPONGE BATHING. AMBULATED INDEPENDENTLY, NO DROP IN 02 WITH ACTIVITY NOTED. BEDDING CHANGED, ROOM CLEANED. EQUIPMENT WIPED DOWN WITH DISINFECTANT WIPES, NEW O2 PULSE OX AND EKG PAD APPLIED TO PATIENT.
[2020-03-07] MEDS: ZITHROMAX PO SCH (20:19)
[2020-03-07] MEDS: LANTUS SQ SCH (20:59)
[2020-03-08] VITALS (53 sets, daily range): BP systolic 73–142; BP diastolic 32–79
[2020-03-08 04:49] LABS: CALCIUM 8.5 mg/dL (8.4-10.5); CARBON DIOXIDE 26.4 mmol/L (20.0-32)
[2020-03-08] MEDS ORDERED: MAGNESIUM SULFATE 50 ML IV ONE (05:30)
--- NOTE | 2020-03-08 06:50 | NUR ---
RECEIVED PT REPORT FROM Anne WOODS RN; ASSUMED PT CARE.
--- NOTE | 2020-03-08 07:26 | DIET.OP ---
Nutrition Asmt/Malnutrit 2-17 Actual Date of Review: Mar 07, 2020 Nutritional Screening: Malnutr/Diet Consult Diagnosis: DKA Pertinent Medical Hx/Surgical: Per MD: He denies any Subjective Information: Consulted for Diabetic Notificaton. Spoke with the patient over the ICU intercom due to positive COVID-19 status. Patient currently does not follow a Diabetic diet. He says that he purposefully lost about 100 pounds because he thought it would help with his diabetes. In doing so he stopped taking his diabetic medications. He has a family history of Diabetes Type 2. 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 States that he has had nutrition education in the past. Current Diet Order/Nutrition S: 1800 ADA Pertinent Meds Current Medications Medications (Trade) Dose Ordered Sig/Aubrie PRN Reason Start Time Stop Time Status Last Admin Ascorbic Acid (Vitamin C) 1,000 mg DAILY 03/05/20 09:00 04/04/20 08:59 03/07/20 07:38 Enoxaparin Sodium (Lovenox) 40 mg DAILY 03/05/20 09:00 04/04/20 08:59 03/07/20 07:39 Guaifenesin (Mucinex) 600 mg BID 03/06/20 21:00 04/05/20 20:59 03/07/20 20:19 Potassium Chloride (Klor-Con 10) 40 meq DAILY 03/08/20 09:00 04/07/20 08:59 Pertinent Labs Laboratory Tests 03/07/20 07:58: Bedside Glucose 178H 03/07/20 11:25: Bedside Glucose 257H 03/07/20 16:53: Bedside Glucose 248H 03/07/20 20:34: Bedside Glucose 260H 03/08/20 04:16: Sodium Level 140, Potassium Level 3.7, Chloride Level 105.0, Carbon Dioxide Level 26.4, Glucose Level 214H, Blood Urea Nitrogen 4L, Creatinine 0.43L, Calcium Level 8.5, Anion Gap 12.3, Estimated GFR () 263.9, Est GFR (CKD-EPI)(Non-Afr Ecuadorean) 218.1, BUN/Creatinine Ratio 9.0, Magnesium Level 1.4L Height (Feet): 5 Height (Inches): 7 Current Weight: 176 Usual Weight: 276 %UBW: 64 %IBW: 119 Weight Status: Overweight GI Symptoms: None Food Allergies: No Cultural/Ethnic/Zoroastrianism Dodie: None reported Usual Diet at Home: Regular BEE in Kcals: Use Current Weight Calories/Kcals/Kg: MsJ * 1.2-1.3 Protein: Use Current Weight Protein g/k-20% of ADA Nutritional Problem: Nutr. Problems Present Problems: Altered Glucose Levels Etiology: Food and Nutrition related knowledge deficit Signs/Symptoms: Glucose level of 480 mg/dL at admission, has not taken insulin for about [address] Comments: Intervention: 1. Continue with 1800 ADA diet 2. Provide nutrition education for the patient on Carbohydrate Counting and Glucose control Monitor/evaluate: 1. Blood glucose levels 2. po intake 3. weight status Expected Outcomes Goal: 1. The patient will consume 100% of meals provided to meet 100% of estimated energy needs over the next 2-3 days Discharge plan: 1. Discharge planning will be for the patient to go home on diabetic diet following carbohydrate counting Malnutrtion/Nutrition Risk Edu: Yes Educated the patient on appropriate blood glucose numbers and counting carbohydrates Notificiation Needed?: No KERRY DICKEY RD Mar 08, 2020 07:26
--- NOTE | 2020-03-08 07:30 | NUR ---
PT RESTING WITH EYES CLOSED, RESP EVEN AND NONLABORED, SKIN P/W/D, VSS. PT EASILY AWAKENS TO VOICE, STATES HE SLEPT WELL, NO C/O DISCOMFORT VOICED. BS CHECKED AT BEDSIDE 196MG/DL; HUMALOG 2 UNITS GIVEN SQ TO RIGHT OUTER UPPER ARM SQ. ASSESSMENT COMPLETE.
[2020-03-08] MEDS: HUMALOG SQ SCH ×3 (07:38→12:30)
[2020-03-08] MEDS ORDERED: KLOR-CON 10 PO ONE (08:11)
[2020-03-08] MEDS: LOVENOX SQ SCH (08:40)
[2020-03-08] MEDS: MUCINEX PO SCH (08:40)
[2020-03-08] MEDS: VITAMIN C PO SCH (08:40)
[2020-03-08] MEDS: ROCEPHIN 2,000 MG in NS 100ML 100 ML IV SCH (08:40)
[2020-03-08] MEDS: KLOR-CON 10 PO SCH (08:40)
[2020-03-08] MEDS: GLUCOPHAGE PO SCH (08:40)
[2020-03-08] MEDS ORDERED: KLOR-CON 10 PO SCH (09:00)
--- NOTE | 2020-03-08 09:40 | NUR ---
PT AWAKE; WATCHING TELEVISION. PT ATE APPROXIMATELY 95% OF BREAKFAST; VOICES NO NEEDS AT THIS TIME.
[2020-03-08] MEDS: NS 1000ML 1,000 ML IV SCH (09:42)
--- NOTE | 2020-03-08 10:57 | NUR ---
DR. OLIVO IN ROOM VISITING WITH PT.
--- NOTE | 2020-03-08 11:15 | NUR ---
DR. SANTILLAN ORDERED TO INCREASED LANTUS TO 45 UNITS AT HS; ORDER CHANGED.
--- NOTE | 2020-03-08 11:30 | NUR ---
PT AWAKE; ALERT WITH NO C/O DISCOMFORT VOICED. BS CHECKED AT BEDSIDE 240MG/DL, 12 UNITS OF HUMALOG GIVEN SQ, LUNCH TRAY GIVEN TO PT.
--- NOTE | 2020-03-08 12:30 | NUR ---
PT ATE 100% OF LUNCH, SPRITE ZERO AND CUP OF ICE GIVEN TO PT PER PT REQUEST. PT STATES THE DOCTOR SAID HE WOULD STAY ONE MORE DAY AND PROBABLY GO HOME TOMORROW.
[2020-03-08] MEDS ORDERED: LEVO750T25 PO (15:06)
[2020-03-08] MEDS ORDERED: INSU100V8 SQ (15:14)
[2020-03-08] MEDS ORDERED: INSU100V37 SQ (15:17)
[2020-03-08] MEDS ORDERED: ALBU18HF IH (15:19)
[2020-03-08] MEDS ORDERED: METF500T17 PO (15:21)
[2020-03-08] MEDS ORDERED: BENZ100C PO (15:23)
--- NOTE | 2020-03-08 15:48 | PRM.DC ---
DISCHARGE SUMMARY DISCHARGE SUMMARY ADMISSION DATE: March 03, 2020 DISCHARGE DATE: March 08, 2020 ADMISSION DIAGNOSES: DKA Diabetes mellitus type 2 uncontrolled Viral pneumonia due to COVID-19 Positive for coronavirus Electrolyte abnormality DISCHARGE DIAGNOSES: DKA Diabetes mellitus type 2 uncontrolled Viral pneumonia due to COVID-19 Positive for coronavirus Electrolyte abnormality DISCHARGE CONDITION: Stable DISCHARGE DISPOSITION: Home with home quarantine HOSPITAL COURSE: The patient is a 39-year-old male with past medical history significant for diabetes mellitus type 2. The patient works at the [employer] in [place]. He reports that he was having fever and cough for few days prior to admission with body aches. He got some antibiotics from [facility] and he took it but he was still having a lot of symptoms. The patient was admitted to the hospital for further evaluation treatment. Chest x-ray has shown that the patient has infiltrate on the lungs bilaterally. COVID-19 was sent and came back positive. The patient was started on a DKA protocol because he was found to be in DKA. Apparently the patient is not taking any medication for his diabetes because he says he lost a lot of weight and he thought that that cannot be enough to control the diabetes. 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 During the his stay we checked his hemoglobin A1c and that was above 16. I have explained to the patient that he will need to be on insulin because that is the only treatment that will get his diabetes under control. He was started on Lantus 45 units at night and 12 units of short-acting insulin lispro before meals with correction dose. Also started the patient on metformin 500 mg p.o. twice daily for now. The patient was prescribed Levaquin to take home after he finished 5 days course of Rocephin and Zithromax in the hospital. I have explained to him that he is positive for coronavirus and he might be transmitting disease to other people for the next 10 to 14 days so he needs to do self quarantine at home. He agreed to all that. PROCEDURES: No procedures DISCHARGE MEDICATIONS: Lantus 45 units every afternoon subcu Insulin lispro 12 units before meals 3 times a day Metformin 500 mg p.o. twice daily Albuterol inhaler every 6 hours as needed for shortness of breath Benzonatate for cough Levaquin 750 mg p.o. daily for 7 days Glucometer and strips to measure blood sugars 3 times a day FOLLOW-UP PLAN: The patient is to follow-up with primary care physician in 1 to 2 weeks COLTON SANTILLAN MD Mar 08, 2020 15:48
[2020-03-08] MEDS ORDERED: LANTUS SQ SCH (21:00)
== END 2020-03-08 17:15 | disposition home or self-care (01) | DRG 177 ==
LOC: ER 21:33 → ICU 03-03 03:18
PROVIDERS: ADMIT Pediatrics; ATTEND Internal Medicine
DX: U07.1 COVID-19 (principal); E11.10 Type 2 diabetes mellitus with ketoacidosis without coma; J12.89 Other viral pneumonia; E87.6 Hypokalemia; J02.0 Streptococcal pharyngitis; Z79.4 Long term (current) use of insulin; Z83.3 Family history of diabetes mellitus
CPT/HCPCS: 36415; 36600; 71046; 80048; 80053; 82010; 82803; 82948; 83036; 83735; 84100; 85025; 86140; 87040; 87635; 87804; 87880; 93005; 99285; G0378; J0456; J0696; J1650; J1815; J3475; J3490; J7030; J7050; J7070; Q0144